=== PATIENT | female | born 1960 | race Caucasian/White ===

== ENCOUNTER 2018-02-14 08:13 | Day surgery (SDC) | payer OTHER ==
[2018-02-14] MEDS: BUPIVACAINE 0.25% (MPF) 30 ML INJ INJ
[2018-02-14] MEDS ORDERED: SOD CHLORIDE 0.9% 1,000 ML IV (11:30)
[2018-02-14] MEDS: CEFAZOLIN 2 GM/50 ML (PMX) 50 ML IVPB (11:30)
[2018-02-14] MEDS ORDERED: BUPIVACAINE 0.25% (MPF) 30 ML INJ (11:31)
[2018-02-14] MEDS ORDERED: MIDAZOLAM 1 MG/ML 2 ML INJ (11:40)
[2018-02-14] MEDS ORDERED: FENTAnyl 50 MCG/ML VIAL (11:40)
[2018-02-14] MEDS ORDERED: METOCLOPRAMIDE 10 MG INJ IV (12:00)
[2018-02-14] MEDS ORDERED: DIPHENHYDRAMINE 50 MG INJ IV (12:00)
[2018-02-14] MEDS ORDERED: morphine (1 MG/ML) 10ML SYRINGE IV (12:00)
[2018-02-14] MEDS ORDERED: FENTAnyl 50 MCG/ML VIAL IV (12:00)
[2018-02-14] MEDS ORDERED: ONDANSETRON 4 MG INJ (12:29)
[2018-02-14] MEDS ORDERED: LIDOCAINE 2% (SDV) 5 ML INJ (12:29)
[2018-02-14] MEDS ORDERED: CEFAZOLIN 1 GM INJ (12:29)
[2018-02-14] MEDS ORDERED: PROPOFOL 20 ML (12:29)
[2018-02-14] MEDS ORDERED: HYDROCODONE/APAP (5/325) TAB PO (13:00)
[2018-02-14] MEDS: ONDANSETRON 4 MG INJ IV (13:08)
[2018-02-14] MEDS: MEPERIDINE 25 MG INJ IV (13:08)
[2018-02-14] MEDS ORDERED: LABETALOL HCL 20MG INJ (13:23)
[2018-02-14] MEDS: LABETALOL HCL 20MG INJ IV (13:38)
[2018-02-14] MEDS: morphine (1 MG/ML) 10ML SYRINGE IV (13:40)
== END 2018-02-14 16:20 | disposition home or self-care (01) ==
LOC: SDS 08:13
DX: D17.24 Benign lipomatous neoplasm of skin and subcutaneous tissue of left leg (principal); D17.22 Benign lipomatous neoplasm of skin and subcutaneous tissue of left arm
CPT/HCPCS: 14301; 88307